=== PATIENT | male | born 1975 | race Hispanic/Latino ===

== ENCOUNTER 2019-03-12 06:37 | Day surgery (SDC) | payer OTHER ==
[2019-03-11 15:49] LABS: BASOPHILS % (AUTO) 0.5 % (0.0-5.0); HEMATOCRIT 47.5 % (36-48); LYMPHOCYTES % (AUTO) 31.6 % (21.0-51.0); MEAN CORPUSCULAR VOLUME 91.1 fL (79-99); MONOCYTES % (AUTO) 6.9 % (3.0-13.0); NUCLEATED RED BLOOD CELLS 0.1 % (0.0-0.19); PLATELET COUNT (AUTO) 268 K/uL (130-400); RED BLOOD CELL COUNT(AUTO) 5.21 MIL/uL (4.00-5.50); RED CELL DISTRIBUTION WIDTH 12.1 % (11.0-15.5); WHITE BLOOD COUNT (AUTO) 7.6 K/uL (4.8-10.8)
[2019-03-11 16:05] VITALS: BP 151/76
[2019-03-11 16:30] LABS: CREATININE 1.2 mg/dL (0.5-1.5); POTASSIUM 4.5 mmol/L (3.5-5.1)
[2019-03-12] VITALS (13 sets, daily range): BP systolic 125–136; BP diastolic 71–88
[~2019-03-12] VITALS: Ht 185.4 cm; Wt 124.6 kg
[~2019-03-12 06:37] MED LIST: BUSP10TA3 PO; HYDR-3421 PO; LISI1TAB29 PO; METH500T6 PO; MONT10TA24 PO; NAPR-1023 PO; OLAN20TA35 PO; OMEP20TA25 PO; PRAZ1CAP5 PO; SERT100T12 PO; SILD100T PO; SUMA100T16 PO; TOPI50TA24 PO; ZOLP10TA6 PO
[2019-03-12] MEDS ORDERED: LACTATED RINGERS 1000ML 1,000 ML IV ONE (07:29)
[2019-03-12] MEDS: CEFAZOLIN SODIUM 1 GM VIAL ONE ×2 (07:44→08:38)
--- NOTE | 2019-03-12 07:52 | NUR ---
POTENTIAL FOR INFECTION: SHAVED RIGHT KNEE / LEG PER FLAQUITO ORTEGA, FOLLOWED BY WIPING WITH FREDDY: CHLORHEXIDINE GLUCONATE CLOTH PATIENTS PRE-OP SKIN PREP.
[2019-03-12] MEDS ORDERED: CEFAZOLIN 3GM /D5W 100ML 100 ML IV SCH (08:00)
[2019-03-12] MEDS ORDERED: PROPOFOL 10 MG/ML 20ML VIAL IV ONE (08:13)
[2019-03-12] MEDS ORDERED: LIDOCAINE PF 2% 5ML ABBOJECT ONE (08:13)
[2019-03-12] MEDS ORDERED: MIDAZOLAM HCL 1 MG/ML 2ML VIAL ONE (08:13)
[2019-03-12] MEDS ORDERED: FENTANYL CITRATE PF 50 MCG/1 ML 5ML AMP IV ONE (08:13)
[2019-03-12] MEDS ORDERED: DEXAMETHASONE SOD PHOSPHATE 10MG/ML 1ML VIAL ONE (08:14)
[2019-03-12] MEDS ORDERED: KETOROLAC TROMETHAMINE 30MG/ML ONE (08:46)
[2019-03-12] MEDS ORDERED: ONDANSETRON HCL 4 MG/2 ML VIAL ONE (08:46)
[2019-03-12] MEDS ORDERED: GLYCOPYRROLATE 1 MG/5 ML SYRINGE ONE (08:57)
[2019-03-12] MEDS ORDERED: CEPH500B PO (09:26)
[2019-03-12] MEDS ORDERED: TYL3 PO (09:26)
[2019-03-12] MEDS ORDERED: MEPERIDINE-PF 25 MG/ML SYG ONE ×2 (09:34→09:55)
--- NOTE | 2019-03-12 10:18 | NUR ---
PATIENT ARRIVED PATIENT BROUGHT TO DAY PATIENT VIA BED BY CHELE OLIVIER. PATIENT AAOX3, RESPIRATIONS UNLABORED, VITALS STABLE, DENIES ANY PAIN AT THIS TIME. PRESSURE BANDAGE/TITO WRAP TO RIGHT KNEE. SWELLING TO RIGHT KNEE NOTED. TITO WRAP IS DRY AND INTACT. BED IN LOWEST POSITION, BED RAILS UPX2, CALL [facility] IN REACH.
--- NOTE | 2019-03-12 10:45 | NUR ---
DISCHARGE INSTRUCTIONS DISCHARGE INSTRUCTIONS PROVIDED TO PATIENT AND PATIENT'S SPOUSE, BOTH VERBALIZED UNDERSTANDING. PROVIDED HANDOUTS ON KNEE ARTHROSCOPY AFTER CARE AND SURGICAL SITE INFECTIONS AND PRESCRIPTIONS WELL. PROVIDED PATIENT WITH CRUTCHES AND INSTRUCTED HIM ON HOW TO ADJUST THEM FOR HIS HEIGHT. ALL QUESTIONS/CONCERNS ADDRESSED.
--- NOTE | 2019-03-12 10:55 | NUR ---
PATIENT DISCHARGED PATIENT DISCHARGED FROM HOSPITAL VIA WHEELCHAIR AND TAKEN TO PRIVATE VEHICLE BY AZUL WYLIE. PATIENT ABLE TO GET INTO PRIVATE VEHICLE UNASSISTED AND DRIVEN BY SPOUSE.
== END 2019-03-12 12:00 | disposition home or self-care (01) ==
LOC: DAH 06:37 → EDSEX 16:00
PROVIDERS: ATTEND Orthopaedic Surgery
DX: M23.221 Derangement of posterior horn of medial meniscus due to old tear or injury, right knee (principal); M22.41 Chondromalacia patellae, right knee; I10 Essential (primary) hypertension; K21.9 Gastro-esophageal reflux disease without esophagitis; J45.909 Unspecified asthma, uncomplicated; F41.9 Anxiety disorder, unspecified; M19.90 Unspecified osteoarthritis, unspecified site; G43.909 Migraine, unspecified, not intractable, without status migrainosus; F32.9 Major depressive disorder, single episode, unspecified; Z98.890 Other specified postprocedural states; Z79.899 Other long term (current) drug therapy; Z82.49 Family history of ischemic heart disease and other diseases of the circulatory system; Z83.3 Family history of diabetes mellitus
CPT/HCPCS: 29881; 36415; 80048; 85025; A4215; A4221; A4222; A4223; A4606; A4649 ×3; A4663; A4930; A5120; A6223; J0690 ×2; J1100; J1885; J2001; J2175 ×2; J2250; J2405; J2704; J3010; J3490; J7120 ×2

== ENCOUNTER → 2019-06-10 | Outpatient (CLI) | payer OTHER ==
[~2019-06-10] MED LIST changes: +CEPH500B PO; +LIDOCAINE HCL 1% 20 ML VIAL ONE; +SODIUM BICARB 50MEQ 50ML VIAL ONE; +TYL3 PO
[2019-06-10 08:12] LABS: BASOPHILS % (AUTO) 0.3 % (0.0-5.0); EOSINOPHILS % (AUTO) 4.4 % (0.0-8.0); LYMPHOCYTES % (AUTO) 35.4 % (21.0-51.0); MEAN CORPUSCULAR HGB CONC 33.3 g/dL (32.0-36.0); MEAN CORPUSCULAR VOLUME 90.2 fL (79-99); MONOCYTES % (AUTO) 9.5 % (3.0-13.0); NEUTROPHILS % (AUTO) 50.1 % (40.0-77.0); PLATELET COUNT (AUTO) 273 K/uL (130-400); WHITE BLOOD COUNT (AUTO) 6.1 K/uL (4.8-10.8)
[2019-06-10 08:22] LABS: CREATININE 1.3 mg/dL (0.5-1.5); POTASSIUM 4.5 mmol/L (3.5-5.1)
[2019-06-10 08:26] LABS: INR 1.02 (0.85-1.15); PARTIAL THROMBOPLASTIN TIME 27.5 SEC (26.3-35.5); PROTHROMBIN TIME 10.7 SEC (9.6-11.6)
--- NOTE | 2019-06-10 09:05 | NUR ---
U/S GUIDED BIOPSY/FINE NEEDLE ASPIRATION RIGHT THYROID NODULE PROCEDURE PERFORMED BY DR. MCKEON. PUNCTURE SITE RIGHT ANTERIOR NECK. PATIENT TOLERATED PROCEDURE WELL. SPECIMEN X 6 COLLECTED AND SENT TO LAB. END OF PROCEDURE AT 0920. BIOPSY NEEDLE REMOVED AND DRESSING APPLIED. NO BLEEDING NOTED. DISCHARGE INSTRUCTIONS GIVEN TO PATIENT AND VERBALIZED UNDERSTANDING. DISCHARGED AMBULATORY, AT 0940. PT STABLE, AAO X3 WITH NO C/O PAIN.
== END | disposition home or self-care (01) ==
LOC: RAH 07:40
PROVIDERS: ATTEND Emergency Medicine Emergency Medical Services
DX: E04.1 Nontoxic single thyroid nodule (principal); Z79.899 Other long term (current) drug therapy; Z82.49 Family history of ischemic heart disease and other diseases of the circulatory system; Z83.3 Family history of diabetes mellitus
CPT/HCPCS: 36415; 60100; 76942; 80048; 85025; 85610; 85730; C1887; J3490

== ENCOUNTER 2019-06-13 14:10 | Emergency (ER) | payer OTHER ==
[~2019-06-13 14:10] MED LIST changes: -LIDOCAINE HCL 1% 20 ML VIAL ONE; -SODIUM BICARB 50MEQ 50ML VIAL ONE
== END 2019-06-13 15:05 | disposition home or self-care (01) ==
LOC: EDH 14:10
DX: J11.1 Influenza due to unidentified influenza virus with other respiratory manifestations (principal); J45.909 Unspecified asthma, uncomplicated; I10 Essential (primary) hypertension; F43.10 Post-traumatic stress disorder, unspecified; Z98.890 Other specified postprocedural states
CPT/HCPCS: 87804